=== PATIENT | female | born 1945 | race Caucasian/White ===

== ENCOUNTER → 2022-04-25 02:59 | Outpatient (CLI) | payer MEDICARE, SELFPAY ==
--- NOTE | 2022-04-25 09:45 | DI.MRI_ITS ---
Exam(s) MR CERVICAL SPINE WO EXAM: MR CERVICAL SPINE WO CLINICAL HISTORY: CERVICALGIA, M54.2, CHRONIC WORSENING LT-SIDE PAIN WORSENED WITH PT. TECHNIQUE: Multiplanar multisequence MRI was performed. COMPARISON: No exams were available for comparison FINDINGS: MR examination cervical spine was according to protocol. Images obtained through the posterior fossa show no specific abnormality apart from cerebral and cere bellar atrophy. There is multilevel loss of disc height and disc signal throughout the cervical region consistent wit h degenerative change. There is a posterior fusion of C5 and C6 vertebral bodies. There is moderate endplate hypertrophic change at this level without central canal spinal stenosis. No other signific ant bony signal abnormality seen. No disc herniation identified in the cervical region. Neural foramina appear fairly well maintained as visualized with the exception of probable bilateral neural foraminal narrowing at C6-7 and mild bi lateral neural foraminal narrowing at C 3 4. Spinal cord shows normal diameter and normal signal throughout with no gross impingement identified i n the cervical region. IMPRESSION: Degenerative changes as described above, no focal lesion identified. DATA REPOSITORY:
== END ==
PROVIDERS: Visit Provider Physician Assistant
DX: Z98.1 Arthrodesis status; M50.323 Other cervical disc degeneration at C6-C7 level
CPT/HCPCS: 72141

== ENCOUNTER → 2025-03-08 14:07 | Outpatient (BNVA) | payer MEDICARE, SELFPAY | PROVIDERS: PCP Physician Assistant; Referring Provider Physician Assistant | DX: M17.0 Bilateral primary osteoarthritis of knee (principal); M21.062 Valgus deformity, not elsewhere classified, left knee | CPT/HCPCS: 20610; 99204; J1010 ==

== ENCOUNTER 2025-06-14 14:45 | Outpatient (CLI) | payer MEDICARE, SELFPAY ==
--- NOTE | 2025-06-14 13:30 | DI.RAD_ITS ---
Exam(s) XR STANDING ALIGNMENT EXAM: XR STANDING ALIGNMENT CLINICAL HISTORY: PRE OP R TKA. TECHNIQUE: 2D digital imaging was performed. Standing AP views were performed from the pelvis through the ankles. COMPARISON: No exams were available for comparison FINDINGS: BONES: No acute fracture is present. No bony destructive lesion is seen. Leg length discrepancy: The right greater trochanter projects superior to the left by approximately 5 millimeters. JOINTS: Knees: Severe narrowing of the medial femoral tibial joint space of the left knee. Prominent periarticular spurring. Severe narrowing of the lateral femoral tibial joint space of the left knee. The ankle joints are show mild narrowing bilaterally. Hips: Right hip prosthesis. The left hip joint space is maintained. SOFT TISSUE: Bilateral lower leg edema, greater at the ankles. Venous varicosities on the left. IMPRESSION: Advanced degenerative changes of both knees. Mild leg length discrepancy. DATA REPOSITORY: RADIATION DOSE DELIVERED:
== END 2025-06-14 14:46 | disposition home or self-care (01) ==
LOC: DIORS 14:46
PROVIDERS: PCP Physician Assistant; Visit Provider Physician Assistant
DX: Z01.818 Encounter for other preprocedural examination (principal); M17.11 Unilateral primary osteoarthritis, right knee; Z86.711 Personal history of pulmonary embolism
CPT/HCPCS: 99024; 77073

== ENCOUNTER 2025-06-22 07:07 | Day surgery (SDC) | payer MEDICARE, SELFPAY ==
[2025-06-22] VITALS (21 sets, daily range): BP systolic 123–166; BP diastolic 44–100; PULSE 65–83; RESP 9–23; TEMP 36.1–36.5; O2SAT 94–98; BMI 29.0
--- NOTE | 2025-06-22 07:13 | W.PM.DSUDISC ---
Date of service: 06/22/25 Discharge Plan Disposition Patient Disposition: Home Condition: Good Discharge Details Reason For Visit: R TKR Attending Provider: Jose Acosta Primary Care Provider: Lu Gonzáles Home Meds and New Rx's Prescriptions: New acetaminophen 500 mg tablet 1,000 mg PO TID Qty: 90 3RF aspirin 81 mg tablet,delayed release (DR/EC) 81 mg PO BID Qty: 60 0RF celecoxib 200 mg capsule 200 mg PO BID Qty: 60 0RF dexamethasone 4 mg tablet 4 mg PO DAILY Qty: 2 0RF docusate sodium 100 mg capsule 100 mg PO BID PRNQty: 28 0RF pantoprazole 40 mg tablet,delayed release (DR/EC) 40 mg PO DAILY Qty: 14 0RF gabapentin 300 mg capsule 300 mg PO QHS Qty: 14 0RF oxycodone 5 mg tablet 5 mg PO Q4H PRNQty: 18 0RF Continued multivitamin Tablet 1 tab PO DAILY losartan 50 mg tablet 50 mg PO DAILY Discontinued acetaminophen 325 mg capsule 325 mg PO ONCE PRN ibuprofen 400 mg tablet 400 mg PO Q8H PRN Discharge Instructions Additional Instructions: Total Knee Discharge Instructions Activity: The most important activity is to walk and to work on gentle motion (both flexion and extension). You should try to take short walks a few times a day. It is important that when resting you work on keeping the knee straight. Avoid putting a pillow behind the knee as this will encourage flexion. Work on range of motion exercises as provided by Physical Therapy. - Start outpatient physical therapy within 2 weeks. - You should wear the JESSE hose on both legs for 2 weeks. You may remove these at night. You may also use any compression sock in place of the JESSE hose. - Utilize [employer] to review exercises, see videos on exercises and obtain basic information pertaining to your surgery and your recovery. Dressing: Remove the Randall wrap by 2 days after your surgery and put on the JESSE stocking given to you from the hospital. Keep the surgical dressing (underneath the RANDALL wrap) in place for at least one week. After the first week it may be removed and replaced with light gauze and tape or nothing. The wound and dressing may get wet after 3 days but avoid soaking the dressing or otherwise it will need to be changed. Many people prefer covering the dressing with cling wrap (saran wrap) to minimize it from getting soaked. If it gets wet, just pat dry. If it starts to peel off then it will need to be changed. Medications: - You should take Tylenol and anti-inflammatory Celebrex as your primary pain control medications. If the Celebrex is too expensive or not covered, please call the office for another alternative (Advil/Ibuprofen or Naproxen/Aleve) - You have been prescribed a stronger pain medication Oxycodone for breakthrough pain, take as needed as prescribed. - You have also been prescribed a stomach acid reduction agent Pantoprozole to help reduce stomach acid and reflux. - You have been prescribed Gabapentin to take at night for restlessness and nerve pain. - You will be taking Aspirin 81mg twice a day for DVT prevention unless instructed otherwise. - You have also been prescribed Decadron to take to control post-operative nausea and pain. You will start this tomorrow. - If you have constipation you should take Colace or Miralax (both [id number]). It takes most people 3-4 days to have a bowel movement. Follow-up: 2 weeks If you have any acute concerns or questions, please do not hesitate to contact the office at [phone]. You may contact Dr. Acosta with any questions after hours through the hospital at [phone] or on his cell phone at [phone]. Referrals: Jose Acosta MD [ [facility] STAFF PHYSICIAN, Orthopaedic Surgical] Equipment/Supplies: Walker Activity:: Activity as Tolerated Shower/Bathe:: 72 hours Diet:: As Tolerated Discharge Orders Discharge Orders: Discharge Order (Routine); Ordered 06/22/25 Ordered By: Kamaljit Simpson DS: Diagnosis Discharge Diagnosis (1) Osteoarthritis of right knee: Status: Acute
--- NOTE | 2025-06-22 07:49 | W.ANESPRE ---
General Info Date of Service Date Performed: 06/22/25 Height: 5 ft 5 in Weight: 79.2 kg Body Mass Index (BMI): 29.0 Surgical Procedure: Operation Date: 06/22/25 09:40 Proposed Procedure Side Surgeon p Knee Total Arthroplasty w/OrthAlign, Cemented W/Patella Right Jose Acosta MD Meds Allergies and Home Medications Allergies Allergy/AdvReac Type Severity Reaction Status Date / Time No Known Allergies Allergy Verified 06/22/25 07:17 Home Medication ?Medication ?Instructions ?Recorded losartan 50 mg tablet 50 mg PO DAILY 06/14/25 multivitamin 1 tab PO DAILY 06/14/25 acetaminophen 500 mg tablet 1,000 mg (2 x 500 mg) PO TID #90 06/22/25 tabs aspirin 81 mg tablet,delayed 81 mg PO BID #60 tabs 06/22/25 release celecoxib 200 mg capsule 200 mg PO BID #60 caps 06/22/25 dexamethasone 4 mg tablet 4 mg PO DAILY #2 tabs 06/22/25 docusate sodium 100 mg capsule 100 mg PO BID PRN #28 caps 06/22/25 gabapentin 300 mg capsule 300 mg PO QHS #14 caps 06/22/25 oxycodone 5 mg tablet 5 mg PO Q4H PRN #18 tabs 06/22/25 pantoprazole 40 mg tablet,delayed 40 mg PO DAILY #14 tabs 06/22/25 release Current Visit Medications: Current Medications Generic Name Dose Route Start Last Admin Trade Name Freq PRN Reason Stop Dose Admin Acetaminophen 1,000 mg 06/22/25 06:00 Acetaminophen 500 Mg Tab PO 06/22/25 23:59 PREOP ZACHARIAH Acetaminophen 1,000 mg 06/22/25 07:10 Acetaminophen 500 Mg Tab PO 07/22/25 07:09 TID PRN PRN Analgesia Celecoxib 400 mg 06/22/25 06:00 Celecoxib 200 Mg Cap PO 06/22/25 23:59 PREOP ZACHARIAH Docusate Sodium 100 mg 06/22/25 07:10 Docusate Sodium 100 Mg Cap PO 07/22/25 07:09 BID PRN PRN Constipation Gabapentin 300 mg 06/22/25 06:00 Gabapentin 300 Mg Cap PO 06/22/25 23:59 PREOP ZACHARIAH Ringer's Solution 1,000 mls @ 80 mls/hr 06/22/25 06:00 IV 06/22/25 23:59 INFUSION ZACHARIAH Cefazolin Sodium/Dextrose 2 gm in 50 mls @ 100 mls/hr 06/22/25 06:00 Ancef Duplex IVPB 06/22/25 23:59 PREOP ZACHARIAH Tranexamic Acid/Sodium Chloride 1,000 mg in 100 mls @ 600 mls/hr 06/22/25 06:00 IVPB 06/22/25 23:59 PREOP ZACHARIAH IV Miscellaneous Supplies 1 each 06/22/25 06:00 Iv Access IV 06/22/25 23:59 DIRECTED ZACHARIAH Ondansetron HCl 4 mg 06/22/25 07:10 Ondansetron 4 Mg/2 Ml Vial IVP 07/22/25 07:09 Q6H PRN PRN Nausea Oxycodone HCl 0 mg 06/22/25 07:10 Oxycodone 5 Mg Tab PO 07/22/25 07:09 Q3H PRN PRN Pain Polyethylene Glycol 17 gm 06/22/25 07:10 Polyethylene Glycol 3350 17 Gm Packet PO 07/22/25 07:09 BID PRN PRN Constipation Sodium Chloride 0 ml 06/22/25 06:00 Normal Saline Flush 10 Ml Syr IV 06/22/25 23:59 PRN PRN Sodium Chloride 0 ml 06/22/25 06:00 Normal Saline 10 Ml Vial IJ 06/22/25 23:59 DIRECTED PRN Sterile Water 0 ml 06/22/25 06:00 Water,Injection,Sterile 10 Ml Vial IJ 06/22/25 23:59 DIRECTED PRN PFSH Active Problems Active Problems: Problem Status Onset Code Acquired genu valgum of left knee Acute M21.062 Unilateral primary osteoarthritis, left knee Acute M17.12 Osteoarthritis of right knee Acute M17.11 Medical History Medical History (Updated 06/22/25 @ 08:09 by Olive Marks RN) Melanoma Osteoarthritis H/O respiratory syncytial virus infection H/O squamous cell carcinoma of skin Breast cancer History of pulmonary embolus (PE) Surgical History Surgical History (Updated 06/22/25 @ 08:09 by Olive Marks RN) S/P complete hysterectomy History of right shoulder replacement History of right hip replacement H/O colonoscopy S/P mastectomy, bilateral Tobacco Smoking/Tobacco Use Status: Never Alcohol Alcohol Intake: current Alcohol intake frequency: holidays/special occasions only Alcohol type: wine Substance Use Substance use type: does not use Vital Signs and Lab Results Vital Signs Most Recent Vital Signs in EMR: Most Recent Vital Signs Temp Pulse Resp BP Pulse Ox 36.5 C 69 20 153/80 H 97 06/22/25 07:19 06/22/25 07:19 06/22/25 07:19 06/22/25 07:19 06/22/25 07:19 Anesthesia Assessment and Plan Anesthesia History Personal History: No History of Anesthesia Complications Family History: No Family History of Anesthesia Complications Exercise Tolerance Exercise Tolerance: Metabolic Equivalents>4 Pertinent Negatives Pertinent Negatives: No Symptoms of GERD, No Major Cardiovascular Symptoms or Complaints and No History of CVA/TIA Cardiac & Pulmonary Exam Cardiac Exam: Normal S1/S2 Heart Sounds Pulmonary Exam: Clear Bilateral Breath Sounds Implantable Cardiac Device Does patient have a Pacemaker or an ICD?: No Airway Exam Known Difficult Airway: No Mallampati Class: 2 Mouth Opening: Normal (> 3cm) Thyromental Distance: Greater than 3 cm Neck Range of Motion: Full ROM Neck Circumference: Normal Teeth Condition: Normal Dentition Tooth Numbering:  1. Missing tooth ASA Classification ASA Score: ASA 2 Emergency Case?: No NPO Status NPO Status: NPO Clears >2 hours, Solids >8 hours Anesthesia Plan Resuscitation Status: Full Code Anesthesia Technique: Spinal Anesthesia Airway Planned: Natural Airway Pain Management: Surgeon and patient request nerve block Monitors Used: Standard Monitors
[2025-06-22] MEDS: Acetaminophen 500 MG TAB 1000 MG PO (07:59)
[2025-06-22] MEDS: Celecoxib 200 MG CAP 400 MG PO (08:00)
[2025-06-22] MEDS: Gabapentin 300 MG CAP PO (08:00)
[2025-06-22] MEDS: Lactated Ringers 1,000 ML 80 ML IV (08:03)
--- NOTE | 2025-06-22 08:51 | W.ANESNERVE ---
Nerve Block Single Injection Procedure Date and Time Date Performed: 06/22/25 Procedure Start: 08:40 Location Where Procedure Performed Procedure Location: Day Surgery Unit Reason Performed: Postoperative Analgesia Requesting Provider: Jose Acosta Timeout Performed Timeout Performed: Yes Monitoring Used ECG, Blood Pressure, SpO2 and See EMR for corresponding vital signs Sterility Sterility: Hand Hygiene, Surgical Cap, Surgical Mask, Sterile Gloves and Chlorhexidine Sedation Given During Procedure Sedation Given (Indicate Dose Given): Precedex IV Dose:: 12 mcg Patient Mental Status Patient Mental Status: Sedate with meaningful communication Nerve Block 1st Nerve Block: Laterality: Right Block Type: Adductor Canal Ultrasound Image Saved?: Yes Needle / Catheter Used: 100mm SonoPlex II Local Anesthetic Bolus (Indicate Dose Given): Lidocaine used for local infiltration of skin, Injected in 3-5ml increments after negative blood aspiration, Bupivacaine 0.25% Dose:: 8 ml and Exparel Dose:: 10 ml Additives (Indicate Dose Given): None Ultrasound: Sterile probe cover and gel used Nerve Stimulator: Supplement to Ultrasound use and No twitch or parasthesia noted < 0.5 mA Paresthesia: None Procedure Tolerated: No Complications and Patient tolerated well Procedure Outcome: Successful Performed By: Peng Ly 2nd Nerve Block: Laterality: Right Block Type: Other (Anterior Femoral Cutaneous nerves) Ultrasound Image Saved?: Yes Needle / Catheter Used: 100mm SonoPlex II Local Anesthetic Bolus (Indicate Dose Given): Lidocaine used for local infiltration of skin, Injected in 3-5ml increments after negative blood aspiration (1-2 ml per nerve) and Bupivacaine 0.25% Dose:: 7 ml Additives (Indicate Dose Given): None Ultrasound: Sterile probe cover and gel used Nerve Stimulator: Supplement to Ultrasound use and No twitch or parasthesia noted < 0.5 mA Paresthesia: None Procedure Tolerated: No Complications and Patient tolerated well Procedure Outcome: Successful Performed By: Peng Ly
[2025-06-22] MEDS: ceFAZolin 2 GM/50 ML BAG IVPB (09:09)
[2025-06-22] MEDS: TRANEXAMIC ACID/SOD. CHL. 1,000 MG/100 ML BAG 600 MG IVPB (09:19)
[2025-06-22] MEDS: Tranexamic Acid 650 MG TAB 1300 MG PO (11:58)
--- NOTE | 2025-06-22 12:15 | ROE_ITS ---
Operative Note Operative Note PRE-OP DIAGNOSIS: Right Knee Arthritis POST-OP DIAGNOSIS: same PROCEDURE: Right Total Knee Arthroplasty with Intraoperative Navigation SURGEON: Jose Acosta SENIOR SECURITY ANALYST: Vane Simpson ANESTHESIA TYPE: Spinal Refer to Anesthesia Record ESTIMATED BLOOD LOSS: 200 PATHOLOGY: none sent COMPLICATIONS: None Patient was transported to: PACU Patient's condition: stable Implants: 1. Depuy Attune Cruciate Retaining Femoral Component, Size 7 2. Depuy Attune Fixed Bearing Tibial Component, Size 6 3. Depuy Attune 7x8 CR, FB Poly 4. Depuy Attune Patellar Component, Size 35 Indications: I have seen Kareen in clinic for symptoms of knee arthritis, confirmed with radiographic findings. She has exhausted nonoperative methods and was having significant limitations in daily function and desired better function and less pain. I discussed the technical details of a knee replacement. I explained the risks of the procedure to include, but not limited to, bleeding, infection, pain, stiffness, fracture, damage to nerves and vessels, damage to muscles and tendons, loosening, need for repeat procedure, blood clot and cardiopulmonary demise. Despite these risks, Kareen elected to proceed. Findings: There was significant signs of arthritis throughout the knee with notable deformity of the patella. Procedure Description: Kareen was greeted in the preoperative holding area where the correct side was identified and marked. The consent was reviewed with the patient and signed. The history and physical was updated. All questions were answered. Preoperative mediacations were administered: Acetaminophen 1000mg, Celebrex 400mg, Gabapentin 300mg, and Oxycontin 10mg. An adductor canal block was then administered by the anesthesia team in the DSU. She was taken back to the operating room. A spinal anesthestic was then administered. The patient was placed into the supine position on the operating room table. A nonsterile tourniquet was placed high onto the leg but only used for cementing. Posts were placed for positioning during the procedure. All bony prominences were well padded. Prophylactic antibiotics in the form of Cefazolin were administered. 1g of Tranxemic Acid was given intravenously within 30 minutes of incision. The right leg was then prepped with Chloraprep and draped in a standard fashion with impervious stockinette and extremity drape with Iodine impregnated skin protection. A timeout to confirm correct identity, side and site, procedure, allergies, anesthesia, and medical concerns was performed. With the knee in some flexion, a midline incision was made overlying the knee. Full thickness skin flaps were raised once the extensor mechanism was encountered. These were raised medially and laterally. Any bleeding was controlled with electrocautery. Once the extensor mechanism was fully exposed, a medial parapatellar arthrotomy was performed in a flexed position. All bleeding from the arthrotomy and the geniculate arteries was coagulated. A medial subperiosteal peel was performed with electrocautery to the midcoronal plane. The fat pad was removed while keeping the patellar tendon protected. The anterior distal femur synovium was removed for later visualization. The ACL and PCL were resected and the anterior horn of the lateral meniscus was transected. The knee was then flexed with the patella everted. Large osteophytes from the tibia were removed. Large osteophytes from the femur were removed. A single starting pin was then placed 1cm anterior to the PCL insertion and the notch in the direction of the femoral head. The OrthoAlign device was applied over the pin. It was oriented to be in line with the epicondylar axis and the trochlear groove. It was then pinned into place. The navigation computer was then turned on and calibrated. The distal femur cut was set at 0 degrees varus/valgus and 3 degrees flexion. The distal femur cutting guide then was positioned for a 9mm cut. The distal femur was cut with an oscillating saw while protecting the soft tissues. The tibia was then addressed. The OrthoAlign device was placed over the tibial tubercle and medial tibia and secured into position. Once again, OrthoAlign was calibrated and then set for a 1 degree varus cut and 5 degrees of posterior slope. With this locked into position, the cut thickness stylus was used to assess cut thickness. The medial side, most involved side, was set for a 4mm cut. This was then held in position and pinned into place with 2 additional pins and a cross pin for stability. The medial and lateral collateral ligaments were protected and the cut was performed. With this completed, it was assessed and noted to be of appropriate dimensions. The guide and OrthoAlign was removed. The Orthoalign gap balancing device was then placed in extension. This was used to ensure that the ligaments were properly balanced with up to 2 to 3 mm laxity laterally compared medially. The extension gap was measured as 22mm. The knee was then brought into 90 degrees of flexion and the ligament penology professor was once again placed. Under the same amount of force the flexion gap was measured. The Attune specific jig was placed and the flexion gap was made to match the extension gap. The distal femur was then sized. The anterior stylus was placed onto the lateral ridge of the anterior femur. This indicated a size 7 femur. The 4-in-1 cutting guide was the placed. The posterior medial femur cut was evaluated and appeared of good thickness. The spacer block was inserted underneath the cutting guide and stability was confirmed in 90 degrees of flexion. An earnest wing was used to confirm appropriate position of the anterior cut to avoid notching. This cutting guide was ensured to be flush on the cut surface and then pinned into place with headed pins. While protecting the soft tissues, quad tendon, and collateral ligaments, the anterior and posterior cuts were performed with a saw. The central two pins were removed and the posterior and anterior chamfers were cut next. The notch-cutting guide was placed. This was pinned to lateralize the femoral component as much as possible while keeping it flush on the cut surface. This was then pinned into position. A reciprocating saw was used to make the notch cut. A rasp smoothed the cut surfaces. A trial posterior stabilized femoral component was then inserted, impacted down to the cut surfaces, and the lug holes were drilled. A provisional trial tibial component was placed and the knee was brought through range of motion. There was noted to be excellent extension and flexion. There was no significant instability. The patella was tracking without thumbs. The tibial cut surface was fully exposed. The medial and lateral menisci were removed. The tibia was then sized as a 6. The tibia had been previously marked during trialing to correspond to the center of the tibial component to help with rotation. The trial was aligned to this vane, approximately rotated to the medial 1/3rd of the tibial tubercle. The trial was pinned into place. The tibia was prepared with a reamer and a keel punch. The knee was then brought into extension and the patella was measured as 21mm. Using the patellar clamp and cut guide, this was resected to a flat surface with at least 13mm of thickness remaining. The size 35mm patella fit the best. This was oriented and then clamped into position. The lugs were drilled. The trial components were removed. The final components, except for the polyethylene were opened on the back table. The periosteal and capsular tissues, especially posteriorly, around the knee were then systematically injected with a periarticular cocktail consisting of 246mg of Ropivacaine, 0.5mg of Epinephrine, 0.08mg of Clonidine, and 30mg of Ketorolac, diluted to 100cc. The tourniquet was then inflated to 275mmHg. The knee was thoroughly irrigated with a pulse lavage and dried. On the back table, with the implants opened, the cement was mixed. 2 batches of medium viscosity cement were prepared with vacuum assistance. After the cement was ready a small amount was placed on to the back side of the tibial component at the keel. A small amount was placed onto the posterior flange of the femur. Cement was manual pressurized and impregnated into the cut surface of the tibia. The tibial component was then inserted into the cut surface and impacted into position. Excess cement was removed and the component was reimpacted. Again, excess cement was removed and our attention was then turned to the femur. The femoral cut surface was once again dried and cement was manually impacted into the cut surface. The femoral component was lined with the lug holes and impacted. Excess cement was removed. It was ensured to be down against the cut surface. The trial polyethylene was then inserted and the leg was brought out into full extension for the duration of the cement curing process, approximately 18min. Cement was lastly manually impacted into the cut surface of the patella and the patellar button was clamped into position and held. During this process attention was turned to the gutters of the knee and for all interfaces for any excess cement. The knee was then thoroughly irrigated with Surgiphor Betadine solution. It was allowed to sit in the knee for 3 minutes before being irrigated out with saline. After the cement had finally cured, approximately 18min, the clamp was removed from the patella and the knee was taken through range of motion. A size 8mm polyethylene component provided the best range of motion and stability with less than 2mm gapping with medial and lateral stress and full extension without significant hyperextension. The patella was tracking with a no-thumbs technique. The trial poly was removed and once again the knee was checked for any loose, excess, or errant cement. The poly component was then inserted into position after cleaning and drying the tibial tray. The capsule was then reapproximated with a No. 1 Vicryl at multiple locations. The capsule was finally closed with a No. 2 Stratafix, barbed suture. The tourniquet was then released and the arthrotomy appeared watertight without significant bleeding. The second dosing of 1g TXA was started. Deep tissues were then reapproximated with 0 Vicryl and 2-0 Vicryl. The skin was closed with a running 3-0 Monocryl in a subcuticular fashion. This was reinforced with skin glue. A Mepilex silver dressing was applied along with a [id number] GRICELDA wrap. A CryoCuff was applied. Kareen was transferred to the hospital bed without difficulty an suffering no apparent complication. Kareen has a good prognosis. Physical therapy will start today and without restrictions, weight-bearing as tolerated. Aspirin 81mg BID will be used for DVT prophylaxis. Date of Procedure: 06/22/25
--- NOTE | 2025-06-22 13:23 | IN_ITS ---
PT Notes Visit Reasons: R TKR Physical Therapy Day Surgery Initial Evaluation Date:06/22/2025 Referring Doctor: JONATHAN Sanchez/ Dr Acosta PT Orders: PT CONSULT: PT evaluation and treatment s/p Ortho Surgery Precautions: WBAT RLE Patient Profile/Admitting Diagnosis: Kareen is an 79 yo female presenting s/p elective right TKA on 06/22/[address] Acosta, Post op uncomplicated PMHX: Acquired genu valgum of left knee (Acute) Unilateral primary osteoarthritis, left knee (Acute) Osteoarthritis of right knee (Acute) DEPO MEDROL 03/08/25 Social History/Home Situation: Pt resides alone in a 2 story home with stair lift to her second floor bedroom. Pt independent ADL, ambulation prior to surgery Equipment Owned/DME: issued and fitted for FWW Subjective:Pt reports she has a stairlift to her second floor. She states she also a RW that someone gave her. Pt states she will be staying on 1st floor initially and her sister will be with her Objective: [] General Observation: Female reclined on stretcher with cryocuff to right knee Mental Status: A+Ox4 , cooperative , able to follow all instructions, agreeable to participate Pain: 3/10 with ambulation right knee ROM: [] Right Lower Extremity: WFL Knee 0-92 degrees Left Lower Extremity: WFL Strength: [] Right Upper Extremity: 5/5 Left Upper Extremity: 5/5 Right Lower Extremity: quad 3-/5, hamstring 2+/5. fair quad set (+) lag with SLR Left Lower Extremity: grossly 4/5 Sensation:intact Bed Mobility/Transfers: [] Supine to sit supervision Sit to stand SBA Stand to sit SBA Bed to chair SBA FWW Gait: Pt amb with FWW 150 ft with SBA initial cues for quad activation then able to carryover without cueing with reciprocal pattern Balance: [] Static Sitting: Normal Dynamic Sitting: good Static Standing: Good Dynamic Standing: Fair + Special Tests: [] Mobility Limitations Standardized Measure [] [facility] AM-PAC 6 clicks Basic Mobility Inpatient Short Form: [] Raw Score: 23 CMS Score: 11.20% Informed Consent/Education: Patient instructed in purpose of PT consult. Treatment: 78231 Packet containing TKA exercise protocol has been given to patient. Education and training on initial set of exercises that can be done at home have been completed with patient. Assessment: Patient is an 79 yo female who presents with clinical signs and symptoms consistent with current/admitting diagnoses that have resulted to mobility limitations, gait instability, generalized weakness, and impairment of motor control as demonstrated by the following impairment level findings: 1. Decreased strength to right knee major muscle groups 2. Impaired standing balance 3. Limitation of joint range of motion in Right knee 4. Pain right knee 5. Impaired functional activity tolerance Impairments are contributing to the following functional limitations: 1. Inability to safely ambulate without assistive device 2. Increase completion time for mobility ADL performance 3. Increased fall risk Patient is assessed as a low complexity based on the following: History: 79-year-old female with impairment level findings, functional limitations, and past medical history as indicated above Examination: Demonstrable impairment in strength, balance, and mobility level with underlying impairments and functional limitations as documented above Presentation: stable/evolving Decision Making: low Goals: N/A. PT evaluation and 1-2 treatment sessions only for functional mobility training using recommended AD and for HEP instruction. Plan of Care/Treatment Plan: N/A. PT evaluation and 1-2 treatment session only for functional mobility training using recommended AD and for HEP instruction. DISCHARGE RECOMMENDATIONS: Home with Outpatient PT as scheduled TREATMENT CODE/TIME: 52205,[id number] Thank you for the opportunity to participate in the care of this patient. Temitope Thurston,PT [facility]
--- NOTE | 2025-06-22 14:29 | W.ANESPOSTOP ---
Postoperative Evaluation Date, Time and Location Date Performed: 06/22/25 Time Performed: 14:29 Patient Location: Day Surgery Unit Vital Signs Most Recent Imported Vital Signs: Most Recent Vital Signs Temp Pulse Resp BP Pulse Ox 36.5 C 72 18 135/78 94 06/22/25 12:18 06/22/25 12:18 06/22/25 12:18 06/22/25 12:18 06/22/25 12:18 Pain Score Most Recent Pain Score: Most Recent Pain Score Pain Level 0 06/22/25 12:18 Assessment Mental Status: Awake (Alert & Oriented to Patient Baseline) Airway and Respiratory Function: Patent airway with normal (patient baseline) respiratory exam Cardiovascular Function: Hemodynamically Stable Hydration Status: Adequately Hydrated Nausea & Vomiting: No Nausea or Vomiting Pain: Pt. Denies Any Pain Peripheral Nerve Block: Regional nerve block not resolved at time of post operative discharge
== END 2025-06-22 13:43 | disposition home or self-care (01) ==
PROVIDERS: PCP Physician Assistant; Visit Provider Student in an Organized Health Care Education/Training Program
PROC: (CPT 27447; principal; 2025-06-22 09:30)
DX: M17.11 Unilateral primary osteoarthritis, right knee (principal); G89.18 Other acute postprocedural pain
CPT/HCPCS: 20985; 27447; 64447; 64450; 97110; 97161; C1776; J0665; J0666; J0690; J1100; J2401; J2405; J2704; J3475

== ENCOUNTER 2025-07-05 13:09 | Outpatient (CLI) | payer MEDICARE, SELFPAY ==
--- NOTE | 2025-07-05 12:30 | DI.RAD_ITS ---
Exam(s) XR KNEE RT 1V XR STANDING ALIGNMENT EXAM: XR STANDING ALIGNMENT and XR knee RT 1 V CLINICAL HISTORY: 1ST POST OP S/P R TKA. TECHNIQUE: 2D digital imaging was performed. Five images were obtained. COMPARISON: CR XR KNEE 3V RT from 02/04/2025 CR XR STANDING ALIGNMENT from 06/14/2025 FINDINGS: BONES: There is a stable right total hip arthroplasty. The patient is now status post right total knee arthroplasty. The orthopedic hardware appears in good position. In the left knee, there is marked degenerative change present in the lateral femoral tibial joint characterized by joint space narrowing and osteophytes. The ankles are well maintained.There is no significant leg length discrepancy. SOFT TISSUE: Normal. IMPRESSION: 1. Interval placement of a right total knee arthroplasty which appears in good position. 2. Marked degenerative changes seen in the left knee. DATA REPOSITORY: RADIATION DOSE DELIVERED:
== END 2025-07-05 13:10 | disposition home or self-care (01) ==
LOC: DIORS 13:09
PROVIDERS: PCP Physician Assistant; Visit Provider Student in an Organized Health Care Education/Training Program
DX: Z47.1 Aftercare following joint replacement surgery (principal); Z96.651 Presence of right artificial knee joint
CPT/HCPCS: 99024; 73560; 77073

== ENCOUNTER → 2025-08-02 13:33 | Outpatient (BNVA) | payer MEDICARE, SELFPAY | PROVIDERS: PCP Physician Assistant; Referring Provider Physician Assistant; Visit Provider Student in an Organized Health Care Education/Training Program | DX: Z47.1 Aftercare following joint replacement surgery (principal); Z96.651 Presence of right artificial knee joint | CPT/HCPCS: 99024 ==

== ENCOUNTER → 2025-09-16 11:04 | Outpatient (BNVA) | payer MEDICARE, SELFPAY | PROVIDERS: PCP Physician Assistant; Referring Provider Physician Assistant; Visit Provider Student in an Organized Health Care Education/Training Program | DX: M17.12 Unilateral primary osteoarthritis, left knee (principal); Z96.651 Presence of right artificial knee joint | CPT/HCPCS: 99214 ==

== ENCOUNTER 2025-11-24 09:49 | Day surgery (SDC) | payer MEDICARE, SELFPAY ==
[2025-11-24] VITALS (28 sets, daily range): BP systolic 131–179; BP diastolic 63–100; PULSE 58–86; RESP 9–25; TEMP 36–36.9; O2SAT 88–98; BMI 30.2
--- NOTE | 2025-11-24 07:35 | W.PM.DSUDISC ---
Date of service: 11/24/25 Discharge Plan Disposition Patient Disposition: Home Condition: Good Discharge Details Reason For Visit: L TKR Attending Provider: Jose Acosta Primary Care Provider: Lu Gonzáles Home Meds and New Rx's Prescriptions: New acetaminophen 500 mg tablet 1,000 mg PO TID Qty: 90 3RF aspirin 81 mg tablet,delayed release (DR/EC) 81 mg PO BID Qty: 60 0RF celecoxib 200 mg capsule 200 mg PO BID Qty: 60 0RF dexamethasone 4 mg tablet 4 mg PO DAILY Qty: 2 0RF docusate sodium 100 mg capsule 100 mg PO BID PRNQty: 28 0RF pantoprazole 40 mg tablet,delayed release (DR/EC) 40 mg PO DAILY Qty: 14 0RF gabapentin 300 mg capsule 300 mg PO QHS Qty: 14 0RF oxycodone 5 mg tablet 5 mg PO Q4H PRNQty: 18 0RF Continued multivitamin Tablet 1 tab PO DAILY losartan 50 mg tablet 50 mg PO DAILY Discontinued celecoxib [Celebrex] 200 mg capsule 200 mg PO BID PRN (Reason: pain) Qty: 60 0RF Rx Instructions: take 1 tablet by mouth twice daily as needed dexamethasone 4 mg tablet 4 mg PO DAILY Qty: 2 0RF acetaminophen 500 mg tablet 1,000 mg PO TID Qty: 90 3RF Discharge Instructions Additional Instructions: Total Knee Discharge Instructions Activity: The most important activity is to walk and to work on gentle motion (both flexion and extension). You should try to take short walks a few times a day. It is important that when resting you work on keeping the knee straight. Avoid putting a pillow behind the knee as this will encourage flexion. Work on range of motion exercises as provided by Physical Therapy. - Start outpatient physical therapy within 2 weeks. - You should wear the JESSE hose on both legs for 2 weeks. You may remove these at night. You may also use any compression sock in place of the JESSE hose. - Utilize [employer] to review exercises, see videos on exercises and obtain basic information pertaining to your surgery and your recovery. Dressing: Remove the Randall wrap by 2 days after your surgery and put on the JESSE stocking given to you from the hospital. Keep the surgical dressing (underneath the RANDALL wrap) in place for at least one week. After the first week it may be removed and replaced with light gauze and tape or nothing. The wound and dressing may get wet after 3 days but avoid soaking the dressing or otherwise it will need to be changed. Many people prefer covering the dressing with cling wrap (saran wrap) to minimize it from getting soaked. If it gets wet, just pat dry. If it starts to peel off then it will need to be changed. Medications: - You should take Tylenol and anti-inflammatory Celebrex as your primary pain control medications. If the Celebrex is too expensive or not covered, please call the office for another alternative (Advil/Ibuprofen or Naproxen/Aleve) - You have been prescribed a stronger pain medication Oxycodone for breakthrough pain, take as needed as prescribed. - You have also been prescribed a stomach acid reduction agent Pantoprozole to help reduce stomach acid and reflux. - You have been prescribed Gabapentin to take at night for restlessness and nerve pain. - You will be taking Aspirin 81mg twice a day for DVT prevention unless instructed otherwise. - You have also been prescribed Decadron to take to control post-operative nausea and pain. You will start this tomorrow. - If you have constipation you should take Colace or Miralax (both [id number]). It takes most people 3-4 days to have a bowel movement. Follow-up: 2 weeks If you have any acute concerns or questions, please do not hesitate to contact the office at [phone]. You may contact Dr. Acosta with any questions after hours through the hospital at [phone] or on his cell phone at [phone]. Stand Alone Forms: Portal Information Referrals: Jose Acosta MD [ [facility] STAFF PHYSICIAN, Orthopaedic Surgical] Equipment/Supplies: Walker Activity:: Activity as Tolerated Shower/Bathe:: 72 hours Diet:: As Tolerated Discharge Orders Discharge Orders: Discharge Order (Routine); Ordered 11/24/25 Ordered By: Kamaljit Simpson DS: Diagnosis Discharge Diagnosis (1) Unilateral primary osteoarthritis, left knee: Status: Acute
--- NOTE | 2025-11-24 10:15 | W.ANESPRE ---
General Info Date of Service Date Performed: 11/24/25 Height: 5 ft 4 in Weight: 80 kg Body Mass Index (BMI): 30.2 Surgical Procedure: Operation Date: 11/24/25 12:55 Proposed Procedure Side Surgeon p Knee Total Arthroplasty, Cemented Left Jose Acosta MD Meds Allergies and Home Medications Allergies Allergy/AdvReac Type Severity Reaction Status Date / Time No Known Allergies Allergy Verified 11/24/25 10:18 Home Medication ?Medication ?Instructions ?Recorded losartan 50 mg tablet 50 mg PO DAILY 06/14/25 multivitamin 1 tab PO DAILY 06/14/25 acetaminophen 500 mg tablet 1,000 mg (2 x 500 mg) PO TID #90 11/24/25 tabs aspirin 81 mg tablet,delayed 81 mg PO BID #60 tabs 11/24/25 release celecoxib 200 mg capsule 200 mg PO BID #60 caps 11/24/25 dexamethasone 4 mg tablet 4 mg PO DAILY #2 tabs 11/24/25 docusate sodium 100 mg capsule 100 mg PO BID PRN #28 caps 11/24/25 gabapentin 300 mg capsule 300 mg PO QHS #14 caps 11/24/25 losartan 25 mg tablet 25 mg PO DAILY 11/24/25 oxycodone 5 mg tablet 5 mg PO Q4H PRN #18 tabs 11/24/25 pantoprazole 40 mg tablet,delayed 40 mg PO DAILY #14 tabs 11/24/25 release Current Visit Medications: Current Medications Generic Name Dose Route Start Last Admin Trade Name Freq PRN Reason Stop Dose Admin Acetaminophen 1,000 mg 11/24/25 06:00 Acetaminophen 500 Mg Tab PO 11/24/25 23:59 PREOP ZACHARIAH Acetaminophen 1,000 mg 11/24/25 07:33 Acetaminophen 500 Mg Tab PO 12/24/25 07:32 TID PRN PRN Analgesia Celecoxib 400 mg 11/24/25 06:00 Celecoxib 200 Mg Cap PO 11/24/25 23:59 PREOP ZACHARIAH Docusate Sodium 100 mg 11/24/25 07:33 Docusate Sodium 100 Mg Cap PO 12/24/25 07:32 BID PRN PRN Constipation Gabapentin 300 mg 11/24/25 06:00 Gabapentin 300 Mg Cap PO 11/24/25 23:59 PREOP ZACHARIAH Ringer's Solution 1,000 mls @ 80 mls/hr 11/24/25 06:00 IV 11/24/25 23:59 INFUSION ZACHARIAH Cefazolin Sodium/Dextrose 2 gm in 50 mls @ 100 mls/hr 11/24/25 06:00 Ancef Duplex IVPB 11/24/25 23:59 PREOP ZACHARIAH Tranexamic Acid/Sodium Chloride 1,000 mg in 100 mls @ 600 mls/hr 11/24/25 06:00 IVPB 11/24/25 23:59 PREOP ZACHARIAH Ondansetron HCl 4 mg 11/24/25 07:33 Ondansetron 4 Mg/2 Ml Vial IVP 12/24/25 07:32 Q6H PRN PRN Nausea Oxycodone HCl 0 mg 11/24/25 07:33 Oxycodone 5 Mg Tab PO 12/24/25 07:32 Q3H PRN PRN Pain Polyethylene Glycol 17 gm 11/24/25 07:33 Polyethylene Glycol 3350 17 Gm Packet PO 12/24/25 07:32 BID PRN PRN Constipation Sodium Chloride 0 ml 11/24/25 06:00 Normal Saline Flush 10 Ml Syr IV 11/24/25 23:59 PRN PRN Sodium Chloride 0 ml 11/24/25 06:00 Normal Saline 10 Ml Vial IJ 11/24/25 23:59 DIRECTED PRN Sterile Water 0 ml 11/24/25 06:00 Water,Injection,Sterile 10 Ml Vial IJ 11/24/25 23:59 DIRECTED PRN PFSH Active Problems Active Problems: Problem Status Onset Code History of total right knee replacement Acute 06/22/25 Z96.651 Acquired genu valgum of left knee Acute M21.062 Unilateral primary osteoarthritis, left knee Acute M17.12 Medical History Medical History Melanoma Osteoarthritis H/O respiratory syncytial virus infection H/O squamous cell carcinoma of skin Breast cancer History of pulmonary embolus (PE) Surgical History Surgical History S/P complete hysterectomy History of right shoulder replacement History of right hip replacement H/O colonoscopy S/P mastectomy, bilateral Tobacco Smoking/Tobacco Use Status: Never Alcohol Alcohol Intake: current Alcohol intake frequency: holidays/special occasions only Alcohol type: wine Substance Use Substance use: Never Substance use type: does not use Vital Signs and Lab Results Vital Signs Most Recent Vital Signs in EMR: Temp Pulse Resp BP Pulse Ox 36.8 C 67 16 155/100 H 95 11/24/25 10:00 11/24/25 10:00 11/24/25 10:00 11/24/25 10:00 11/24/25 10:00 Anesthesia Assessment and Plan Anesthesia History Personal History: No History of Anesthesia Complications Family History: No Family History of Anesthesia Complications Exercise Tolerance Exercise Tolerance: Metabolic Equivalents>4 Cardiac & Pulmonary Exam Cardiac Exam: Normal S1/S2 Heart Sounds Pulmonary Exam: Clear Bilateral Breath Sounds Implantable Cardiac Device Does patient have a Pacemaker or an ICD?: No Airway Exam Known Difficult Airway: No Mallampati Class: 2 Mouth Opening: Normal (> 3cm) Thyromental Distance: Greater than 3 cm Neck Range of Motion: Full ROM Neck Circumference: Normal Teeth Condition: Normal Dentition ASA Classification ASA Score: ASA 2 Emergency Case?: No NPO Status NPO Status: NPO Clears >2 hours, Solids >8 hours Anesthesia Plan Resuscitation Status: Full Code Anesthesia Technique: Spinal Anesthesia Airway Planned: Natural Airway Pain Management: Surgeon and patient request nerve block Monitors Used: Standard Monitors Preoperative Comments:: 80 yo for TKA. Was mostly awake last time, would like the same this time. Sig PMHx: HTN (losartan. BP at home 130-140/80s. Hasn't had her meds in a few weeks), PE (covid related). Never smoker, occ EtOH. Previous Anes: - TKA, chloro spinal, light prop sedation. ADCB with dexmed 12 mcg for sedation, 8/8 mL of exparal/bupivacaine.
[2025-11-24] MEDS: Gabapentin 300 MG CAP PO (10:45)
[2025-11-24] MEDS: Acetaminophen 500 MG TAB 1000 MG PO (10:45)
[2025-11-24] MEDS: Celecoxib 200 MG CAP 400 MG PO (10:45)
[2025-11-24] MEDS: Lactated Ringers 1,000 ML 80 ML IV (11:00)
[2025-11-24] MEDS: ceFAZolin 2 GM/50 ML BAG IVPB (12:01)
[2025-11-24] MEDS: TRANEXAMIC ACID/SOD. CHL. 1,000 MG/100 ML BAG 600 MG IVPB (12:12)
--- NOTE | 2025-11-24 12:25 | W.ANESNERVE ---
Nerve Block Single Injection Procedure Date and Time Date Performed: 11/24/25 Procedure Start: 11:28 Location Where Procedure Performed Procedure Location: Day Surgery Unit Reason Performed: Postoperative Analgesia Requesting Provider: Jose Acosta Timeout Performed Timeout Performed: Yes Monitoring Used ECG, Blood Pressure, SpO2 and See EMR for corresponding vital signs Sterility Sterility: Hand Hygiene, Surgical Cap, Surgical Mask, Sterile Gloves and Chlorhexidine Sedation Given During Procedure Sedation Given (Indicate Dose Given): No Sedation given Patient Mental Status Patient Mental Status: Awake Nerve Block 1st Nerve Block: Laterality: Left Block Type: Adductor Canal Ultrasound Image Saved?: Yes Needle / Catheter Used: 100mm SonoPlex II Local Anesthetic Bolus (Indicate Dose Given): Lidocaine used for local infiltration of skin, Injected in 3-5ml increments after negative blood aspiration, Bupivacaine 0.25% Dose:: 10ml and Exparel Dose:: 10ml Additives (Indicate Dose Given): None Ultrasound: Sterile probe cover and gel used Nerve Stimulator: Supplement to Ultrasound use and No twitch or parasthesia noted < 0.5 mA Paresthesia: None Procedure Tolerated: No Complications and Patient tolerated well Procedure Outcome: Successful Performed By: Wild Sosa
[2025-11-24] MEDS: ROPIvacaine/EPI/CLONIDINE/KET 50 ML SYRINGE IJ (12:30)
--- NOTE | 2025-11-24 14:15 | W.ANESPOSTOP ---
Postoperative Evaluation Date, Time and Location Date Performed: 11/24/25 Time Performed: 14:16 Patient Location: PACU Vital Signs Most Recent Imported Vital Signs: Most Recent Vital Signs Temp Pulse Resp BP Pulse Ox 36.9 C 65 15 159/82 H 97 11/24/25 11:29 11/24/25 13:56 11/24/25 13:56 11/24/25 13:55 11/24/25 13:56 Pain Score Most Recent Pain Score: Most Recent Pain Score Pain Level 0 11/24/25 11:29 Assessment Mental Status: Awake (Alert & Oriented to Patient Baseline) Airway and Respiratory Function: Patent airway with normal (patient baseline) respiratory exam Cardiovascular Function: Hemodynamically Stable Hydration Status: Adequately Hydrated Nausea & Vomiting: No Nausea or Vomiting Pain: Pt. Denies Any Pain Peripheral Nerve Block: Regional nerve block not resolved at time of post operative discharge
[2025-11-24] MEDS: oxyCODONE 5 MG TAB PO (14:56)
--- NOTE | 2025-11-24 16:08 | IN_ITS ---
PT Notes Visit Reasons: L TKR Physical Therapy Day Surgery Initial Evaluation Date: 11/24/25 Referring Doctor: JONATHAN Sanchez PT Orders: PT CONSULT: s/p left TKA Precautions: fall, standard Certification Period: From 11/24/25 through 11/24/25 I certify the need for these services as being medically necessary and skilled as furnished under this plan of treatment while under my care. Please sign and return within 14 days if you agree wit the above plan of care. Thank you for this referral! Referring Physician: Date: Patient Profile/Admitting Diagnosis: Kareen is an 80 year old female referred for PT evaluation following left TKA, post-op day #0. She is additionally 5 months s/p right TKA. PMHX: All Active Problems History of total right knee replacement (Acute 06/22/25) Acquired genu valgum of left knee (Acute) Unilateral primary osteoarthritis, left knee (Acute) Medical History Melanoma Osteoarthritis H/O respiratory syncytial virus infection H/O squamous cell carcinoma of skin Breast cancer History of pulmonary embolus (PE) Surgical History S/P complete hysterectomy History of right shoulder replacement History of right hip replacement H/O colonoscopy S/P mastectomy, bilateral Social History/Home Situation: Independent 80 year old female. Lives in a private home, no JEANETTE, chair assist for flight of stairs to bedroom. Has FWW and bedside commode for post-op use, but typically ambulates independently. Her sister has come to stay with her for assistance post-operatively. Equipment Owned/DME: FWW, commode Subjective: Kareen states that she's feeling well. She has questions about getting in/out of bed. Objective: General Observation: Resting in bed, ice to left knee. Mental Status: A&Ox3 Pain: well managed ROM: Right Upper Extremity: WFL Left Upper Extremity: WFL Right Lower Extremity: Right knee 0-120* actively Left Lower Extremity: Demonstrates 0-100*knee flexion actively Strength: Right Upper Extremity: WFL Left Upper Extremity: WFL Right Lower Extremity: Quads 5/5. Hip flexion 5/5. Ankle DF 5/5 Left Lower Extremity: Able to pump ankle and wiggle toes. Able to perform SLR independently without extension lag. Sensation: intact distally Bed Mobility/Transfers: Supine to sit : supervision sit-supine: assisting LLE with RLE, mod A at trunk. Sit to stand : supervision Stand to sit: supervision Bed to chair : supervision with FWW Gait: Ambulates 120' with FWW, CGA-SBA. Stairs: Deferred, as patient does not manage stairs at baseline Balance: Static Sitting: normal Dynamic Sitting: normal Static Standing: good. Able to stand at sink to wash hands unsupported with good safety awareness Dynamic Standing: fair Special Tests: Mobility Limitations Standardized Measure [facility] AM-PAC 6 clicks Basic Mobility Inpatient Short Form: Raw Score: 22 CMS Score: 21% impairment Informed Consent/Education: Patient instructed in purpose of PT consult. Packet containing [] exercise protocol has been given to patient. Education and training on initial set of exercises that can be done at home have been completed with patient. Treatment: Initial Evaluation (00127) Therapeutic Exercises (07173): Instructed in HEP for self-management in acute post-op phase: Ankle Pumps 10x, 3x/day Quad sets 10x, 3x/day Glute sets 10x, 3x/day SLR 10x, 3x/day heel slide 10x, 3x/day extension hang 3 minutes, 3x/day Discussed sleeping options due to difficulty getting back into bed. She does have a recliner which she feels comfortable sleeping in. Will move [employer] chair during the night. Assessment: Patient presents with clinical signs and symptoms consistent with current/admitting diagnoses that have resulted to mobility limitations, gait instability, generalized weakness, and impairment of motor control as demonstrated by the following impairment level findings: 1. Decreased strength to left knee major muscle groups 2. Impaired standing balance 3. Limitation of joint range of motion in left knee Impairments are contributing to the following functional limitations: 1. Inability to safely ambulate without assistive device 2. Increase completion time for mobility ADL performance 3. Increased fall risk Patient is assessed as low complexity based on the following: History: Patient is an 80-year-old female with impairment level findings, functional limitations, and past medical history as indicated above Examination: Demonstrable impairment in strength, balance, and mobility level with underlying impairments and functional limitations as documented above Presentation: stable Decision Making: low Goals: N/A. PT evaluation and 1-2 treatment sessions only for functional mobility training using recommended AD and for HEP instruction. Plan of Care/Treatment Plan: N/A. PT evaluation and 1-2 treatment session only for functional mobility training using recommended AD and for HEP instruction. DISCHARGE RECOMMENDATIONS: Home with outpatient PT as per ortho TREATMENT CODE/TIME: [id number] ([id number], [id number]) Thank you for the opportunity to participate in the care of this patient. Abbey Ireland, PT, DPT [facility]
--- NOTE | 2025-11-24 17:12 | W.PM.OP ---
Operative Note Operative Note PRE-OP DIAGNOSIS: Left Knee Osteoarthritis POST-OP DIAGNOSIS: same PROCEDURE: Left Total Knee Arthroplasty with Intraoperative Navigation SURGEON: Jose Acosta TABLE GAMES DUAL RATE SUPERVISOR: Vane Simpson ANESTHESIA TYPE: Spinal Refer to Anesthesia Record ESTIMATED BLOOD LOSS: 100 PATHOLOGY: none sent COMPLICATIONS: None Patient was transported to: PACU Patient's condition: stable Implants: 1. Depuy Attune Cruciate Retaining Femoral Component, Size 6 2. Depuy Attune Fixed Bearing Tibial Component, Size 6 3. Depuy Attune 6x12 CR,FB Poly 4. Depuy Attune Patellar Component, Size 35 Indications: I have seen Kareen in clinic for symptoms of knee arthritis, confirmed with radiographic findings. She has exhausted nonoperative methods and was having significant limitations in daily function and desired better function and less pain. I discussed the technical details of a knee replacement. I explained the risks of the procedure to include, but not limited to, bleeding, infection, pain, stiffness, fracture, damage to nerves and vessels, damage to muscles and tendons, loosening, need for repeat procedure, blood clot and cardiopulmonary demise. Despite these risks, Kareen elected to proceed. Findings: There was significant signs of arthritis throughout the knee. Procedure Description: Kareen was greeted in the preoperative holding area where the correct side was identified and marked. The consent was reviewed with the patient and signed. The history and physical was updated. All questions were answered. Preoperative mediacations were administered: Acetaminophen 1000mg, Celebrex 400mg, Gabapentin 300mg, and Oxycontin 10mg. An adductor canal block was then administered by the anesthesia team in the DSU. She was taken back to the operating room. A spinal anesthestic was then administered. The patient was placed into the supine position on the operating room table. A nonsterile tourniquet was placed high onto the leg but only used for cementing. Posts were placed for positioning during the procedure. All bony prominences were well padded. Prophylactic antibiotics in the form of Cefazolin were administered. 1g of Tranxemic Acid was given intravenously within 30 minutes of incision. The left leg was then prepped with Chloraprep and draped in a standard fashion with impervious stockinette and extremity drape with Iodine impregnated skin protection. A timeout to confirm correct identity, side and site, procedure, allergies, anesthesia, and medical concerns was performed. With the knee in some flexion, a midline incision was made overlying the knee. Full thickness skin flaps were raised once the extensor mechanism was encountered. These were raised medially and laterally. Any bleeding was controlled with electrocautery. Once the extensor mechanism was fully exposed, a medial parapatellar arthrotomy was performed in a flexed position. All bleeding from the arthrotomy and the geniculate arteries was coagulated. A medial subperiosteal peel was performed with electrocautery to the midcoronal plane. The fat pad was removed while keeping the patellar tendon protected. The anterior distal femur synovium was removed for later visualization. The ACL and PCL were resected and the anterior horn of the lateral meniscus was transected. The knee was then flexed with the patella everted. Large osteophytes from the tibia were removed. Large osteophytes from the femur were removed. A single starting pin was then placed 1cm anterior to the PCL insertion and the notch in the direction of the femoral head. The OrthoAlign device was applied over the pin. It was oriented to be in line with the epicondylar axis and the trochlear groove. It was then pinned into place. The navigation computer was then turned on and calibrated. The distal femur cut was set at 0 degrees varus/valgus and 3 degrees flexion. The distal femur cutting guide then was positioned for a 9mm cut. The distal femur was cut with an oscillating saw while protecting the soft tissues. The tibia was then addressed. The OrthoAlign device was placed over the tibial tubercle and medial tibia and secured into position. Once again, OrthoAlign was calibrated and then set for a 1 degree varus cut and 5.5 of posterior slope. With this locked into position, the cut thickness stylus was used to assess cut thickness. The medial side, most involved side, was set for a 6mm cut. This was then held in position and pinned into place with 2 additional pins and a cross pin for stability. The medial and lateral collateral ligaments were protected and the cut was performed. With this completed, it was assessed and noted to be of appropriate dimensions. The guide and OrthoAlign was removed. The Orthoalign gap balancing device was then placed in extension. This was used to ensure that the ligaments were properly balanced with up to 2 to 3 mm laxity laterally compared medially. The extension gap was measured as 22mm. The knee was then brought into 90 degrees of flexion and the ligament vat house laborer was once again placed. Under the same amount of force the flexion gap was measured. The Attune specific jig was placed and the flexion gap was made to match the extension gap. The distal femur was then sized. The anterior stylus was placed onto the lateral ridge of the anterior femur. This indicated a size 6 femur. The 4-in-1 cutting guide was the placed. The posterior medial femur cut was evaluated and appeared of good thickness. The spacer block was inserted underneath the cutting guide and stability was confirmed in 90 degrees of flexion. An earnest wing was used to confirm appropriate position of the anterior cut to avoid notching. This cutting guide was ensured to be flush on the cut surface and then pinned into place with headed pins. While protecting the soft tissues, quad tendon, and collateral ligaments, the anterior and posterior cuts were performed with a saw. The central two pins were removed and the posterior and anterior chamfers were cut next. The notch-cutting guide was placed. This was pinned to lateralize the femoral component as much as possible while keeping it flush on the cut surface. This was then pinned into position. A reciprocating saw was used to make the notch cut. A rasp smoothed the cut surfaces. A trial posterior stabilized femoral component was then inserted, impacted down to the cut surfaces, and the lug holes were drilled. A provisional trial tibial component was placed and the knee was brought through range of motion. The polyethylene was trialed until there was good flexion and extension with excellent stability to the medial and lateral collaterals. The patella was tracking without thumbs. The tibial cut surface was fully exposed. The medial and lateral menisci were removed. The tibia was then sized as a 6. The tibia had been previously marked during trialing to correspond to the center of the tibial component to help with rotation. The trial was aligned to this vane, approximately rotated to the medial 1/3rd of the tibial tubercle. The trial was pinned into place. The tibia was prepared with a reamer and a keel punch. The knee was then brought into extension and the patella was measured as 24mm. Using the patellar clamp and cut guide, this was resected to a flat surface with at least 13mm of thickness remaining. The size 35mm patella fit the best. This was oriented and then clamped into position. The lugs were drilled. The trial components were removed. The final components, except for the polyethylene were opened on the back table. The periosteal and capsular tissues, especially posteriorly, around the knee were then systematically injected with a periarticular cocktail consisting of 246mg of Ropivacaine, 0.5mg of Epinephrine, 0.08mg of Clonidine, and 30mg of Ketorolac, diluted to 100cc. The tourniquet was then inflated to 275mmHg. The knee was thoroughly irrigated with a pulse lavage and dried. On the back table, with the implants opened, the cement was mixed. 2 batches of medium viscosity cement were prepared with vacuum assistance. After the cement was ready a small amount was placed on to the back side of the tibial component at the keel. A small amount was placed onto the posterior flange of the femur. Cement was manual pressurized and impregnated into the cut surface of the tibia. The tibial component was then inserted into the cut surface and impacted into position. Excess cement was removed and the component was reimpacted. Again, excess cement was removed and our attention was then turned to the femur. The femoral cut surface was once again dried and cement was manually impacted into the cut surface. The femoral component was lined with the lug holes and impacted. Excess cement was removed. It was ensured to be down against the cut surface. The trial polyethylene was then inserted and the leg was brought out into full extension for the duration of the cement curing process, approximately 15min. Cement was lastly manually impacted into the cut surface of the patella and the patellar button was clamped into position and held. During this process attention was turned to the gutters of the knee and for all interfaces for any excess cement. The knee was then thoroughly irrigated with Surgiphor Betadine solution. It was allowed to sit in the knee for 3 minutes before being irrigated out with saline. After the cement had finally cured, approximately 15min, the clamp was removed from the patella and the knee was taken through range of motion. A size 12mm polyethylene component provided the best range of motion and stability with less than 2mm gapping with medial and lateral stress and full extension without significant hyperextension. The patella was tracking with a no-thumbs technique. The trial poly was removed and once again the knee was checked for any loose, excess, or errant cement. The poly component was then inserted into position after cleaning and drying the tibial tray. The capsule was then reapproximated with a No. 1 Vicryl at multiple locations. The capsule was finally closed with a No. 2 Stratafix, barbed suture. The tourniquet was then released and the arthrotomy appeared watertight without significant bleeding. The second dosing of 1g TXA was started. Deep tissues were then reapproximated with 0 Vicryl and 2-0 Vicryl. The skin was closed with a running 3-0 Monocryl in a subcuticular fashion. This was reinforced with skin glue. A Mepilex silver dressing was applied along with a [id number] GRICELDA wrap. A CryoCuff was applied. Kareen was transferred to the hospital bed without difficulty an suffering no apparent complication. Kareen has a good prognosis. Physical therapy will start today and without restrictions, weight-bearing as tolerated. Aspirin 81mg BID will be used for DVT prophylaxis. Date of Procedure: 11/24/25
== END 2025-11-24 16:40 | disposition home or self-care (01) ==
PROVIDERS: PCP Physician Assistant; Visit Provider Student in an Organized Health Care Education/Training Program
PROC: (CPT 27447; principal; 2025-11-24 12:45)
DX: M17.12 Unilateral primary osteoarthritis, left knee (principal); G89.18 Other acute postprocedural pain
CPT/HCPCS: 20985; 27447; 64447; 97110; 97161; C1776; J0665; J0666; J0690; J1100; J2401; J2405; J2704